=== PATIENT | male | born 1975 | race Caucasian/White ===

== ENCOUNTER 2020-07-10 21:06 | Emergency (ER) | payer BC ==
[~2020-07-10] VITALS: Ht 180.3 cm; Wt 99.8 kg
[2020-07-10 22:01] LABS: BASOPHILS # (AUTO) 0.1 (0.0-0.1); BASOPHILS % 0.5 % (0.0-1.0); EOSINOPHILS # (AUTO) 0.6 (0.0-0.4); HEMATOCRIT 42.5 % (38.2-49.6); HEMOGLOBIN 14.3 g/dL (14.0-18.0); LYMPHOCYTES # (AUTO) 2.4 (1.0-3.2); LYMPHOCYTES % 15.9 % (18.0-39.1); MEAN CORPUSCULAR HEMOGLOBIN 29.8 pg (28-32); MEAN CORPUSCULAR HGB CONC 33.6 g/dL (31-35); MEAN CORPUSCULAR VOLUME 88.5 fL (81-99); MONOCYTES # (AUTO) 1.2 (0.2-0.8); MONOCYTES % 7.8 % (4.4-11.3); NEUTROPHILS # (AUTO) 10.9 (2.1-6.9); NEUTROPHILS % 71.5 % (38.7-80.0); PLATELET COUNT 260 x10e3/uL (140-360); RED CELL DISTRIBUTION WIDTH 13.1 % (11.7-14.4)
[2020-07-10 22:20] LABS: ALANINE AMINOTRANSFERASE 43 IU/L (0-55); ALBUMIN 4.2 g/dL (3.5-5.0); ALBUMIN/GLOBULIN RATIO 1.4 (0.8-2.0); ALKALINE PHOSPHATASE 69 IU/L (40-150); ANION GAP 14.6 mmol/L (8-16); BLOOD UREA NITROGEN 12 mg/dL (7-26); BUN/CREATININE RATIO 11 (6-25); CALCIUM 9.1 mg/dL (8.4-10.2); CARBON DIOXIDE 23 mmol/L (22-29); CHLORIDE 107 mmol/L (98-107); CREATININE, SERUM 1.05 mg/dL (0.72-1.25); EST GLOMERULAR FILTRATION RATE > 60 ML/MIN (60-); GLUCOSE 108 mg/dL (74-118); POTASSIUM 3.6 mmol/L (3.5-5.1); SODIUM 141 mmol/L (136-145)
[2020-07-10] MEDS ORDERED: DIATRIZOATE MEGL/DIATRIZOA SOD 30 ML BTL PO ONE (22:37)
[2020-07-10] MEDS ORDERED: VANCOMYCIN 1GM/NS 250 ML 250 ML IV STA (22:42)
[2020-07-10] MEDS ORDERED: CEFEPIME 1GM/NS 0.9% 50 ML 50 ML IV STA (22:42)
[2020-07-10] MEDS ORDERED: IOPAMIDOL 370 MG/ML 200 ML INFUS..BTL INJ ONE (23:17)
[2020-07-10] MEDS ORDERED: SODIUM CHLORIDE 0.9% 50ML 50 ML ONE (23:17)
[2020-07-11] MEDS ORDERED: ULTRAM50 MG PO (00:14)
[2020-07-11] MEDS ORDERED: CLINDAMYCIN HC150 MG PO (00:14)
[2020-07-11 01:38] VITALS: BP 121/79
== END 2020-07-11 01:40 | disposition home or self-care (01) ==
LOC: ER 21:39
DX: L02.215 Cutaneous abscess of perineum (principal)
CPT/HCPCS: 36415; 72193; 80053; 83605; 85025; 87040; 99284; J0692; J3370; Q9967